=== PATIENT | female | born 1970 | race Caucasian/White ===

== ENCOUNTER 2022-09-23 16:27 | Emergency (ER) | payer MEDICAID ==
[~2022-09-23] VITALS: Ht 157.5 cm; Wt 85.7 kg
[2022-09-23 16:32] VITALS: BP 131/83
--- NOTE | 2022-09-23 16:43 | NUR ---
ERMD MADE AWARE OF NUMBNESS AND FACIAL DROOP, ERMD IN TRIAGE ROOM FOR PT ASSESSMENT AT THIS TIME.
--- NOTE | 2022-09-23 17:22 | NUR ---
PT AMBULATED TO BED 7
--- NOTE | 2022-09-23 17:30 | NUR ---
52YO FEMALE PT C/O R FACIAL NUMBING X2DAYS. REPORTS SUDDEN ONSET. DENIES INJURY, PAIN, N/V/D, CHEST PAIN OR SOB. PT AAOX4, HOB POSITIONED PER COMFORT HX: DENIES NKA
--- NOTE | 2022-09-23 17:45 | NUR ---
MD CARRENO AT BEDSIDE FOR EVALUATION
[2022-09-23] MEDS ORDERED: PRED20TA5 PO (18:02)
[2022-09-23] MEDS ORDERED: IBUP-2213 PO (18:02)
--- NOTE | 2022-09-23 18:05 | NUR ---
Patient discharged with v/s stable. Written and verbal after care instructions FOR COPE PALSY given and explained. Patient alert, oriented and verbalized understanding of instructions. Ambulatory with steady gait. All questions addressed prior to discharge. ID band removed. Patient advised to follow up with PMD. Rx of IBUPROFEN AND PREDNISONE given. Opportunity to ask questions provided and answered.
== END 2022-09-23 18:05 | disposition home or self-care (01) ==
LOC: MED 16:27
DX: G51.0 Bell's palsy (principal)
CPT/HCPCS: 99283